=== PATIENT | female | born 1935 | race Caucasian/White ===

== ENCOUNTER → 2017-12-04 | Outpatient (CLI) | payer OTHER, SELFPAY ==
[~2017-12-04] MED LIST: ACET325; ACET500 PO; ASPI325; ASPI81CH PO; ASPI81EC; B-121000 MC2 PO; BENA20 PO; BENEZEPRIL; CALCIUM; CALCIUM W/D; CARBAMAZEPINE; CARV25 PO; CARV6.25 PO; CHOL10002 PO; CYAN1000 PO; DOCU100 PO; ENOX40I SC; ERGO400 PO; FURO40 PO; GINGKO BILOBA; GLIP10ER PO; GLYB2.5; GLYB5; HYDACE5; HYDACE5 PO; LIDO5TP TOP; LISI5 PO; LOSA25 PO; LOVA20 PO; LOVA40; LOVA40 PO; Lotensin PO; MAGCIT300 PO; METF500; METF500 PO; METO10 PO; Micro-K10 MEQ PO; NAPR500 PO; Norco 5-325 Ta1 EACH PO; OXYC5 PO; POTCHL20ER PO; PRED20 PO; PROACE100 PO; RXPROACE PO; SOLI5 PO; SPIR25 PO; Senokotxtra17.2 MG PO; TOLT4; TRADJENTA5 MG PO; TRAM50 PO; TYLENOL; VALA500 PO; VENL75ER PO; VERA240ER PO; VERA240ERB; VERAPAMIL; VESICARE; VITAMIN B; VITAMIN B 12; VOLTAREN GEL 1% TOP; Vesicare PO; XARELTO10 MG PO; [UNRECOGNIZED DRUG - OTHER]; [UNRECOGNIZED DRUG - REMARK]
[2017-12-06 13:13] LABS: HPV Genotype 16 Not Detected (NOTDET); HPV Genotype 18 Not Detected (NOTDET); HPV High Risk Other Not Detected (NOTDET)
== END | disposition home or self-care (01) ==
LOC: OLS 14:45
PROVIDERS: Nurse Practitioner Women's Health
DX: Z12.72 Encounter for screening for malignant neoplasm of vagina (principal); Z91.89 Other specified personal risk factors, not elsewhere classified
CPT/HCPCS: 87624; G0123

== ENCOUNTER 2018-05-28 08:50 | Day surgery (SDC) | payer OTHER ==
[~2018-05-28] VITALS: Ht 162.6 cm; Wt 69.4 kg
[~2018-05-28 08:50] MED LIST changes: -OXYC5 PO; -XARELTO10 MG PO
[2018-05-29 04:39] LABS: BASOPHILS ABSOLUTE AUTO 0.05 K/mm3 (0.00-0.23); BASOPHILS PERCENT AUTO 0 % (0-2); EOSINOPHILS ABSOLUTE AUTO 0.66 K/mm3 (0.00-0.68); EOSINOPHILS PERCENT AUTO 6 % (0-6); Hematocrit 31.5 % (33.0-51.0); Hemoglobin 10.2 g/dL (11.5-16.0); IMMATURE GRAN ABSOLUTE AUTO 0.05 K/mm3 (0.00-0.10); IMMATURE GRAN PERCENT AUTO 0 % (0-1); LYMPHOCYTES ABSOLUTE AUTO 1.03 K/mm3 (0.84-5.20); LYMPHOCYTES PERCENT AUTO 9 % (21-46); MONOCYTES ABSOLUTE AUTO 1.06 K/mm3 (0.16-1.47); MONOCYTES PERCENT AUTO 9 % (4-13); Mean Corpuscular HGB 30.4 pg (26.0-34.0); Mean Corpuscular HGB Conc 32.4 g/dL (31.5-36.5); Mean Corpuscular Volume 94 fL (80-100); Mean Platelet Volume 9.2 fL (9.1-12.4); NEUTROPHILS ABSOLUTE AUTO 8.69 K/mm3 (1.96-9.15); NEUTROPHILS PERCENT AUTO 75 % (41-73); Platelet Count 185 K/mm3 (150-400); RDW Coefficient Variation 11.9 % (11.7-14.2); RDW Standard Deviation 41.2 fL (35.1-46.3); Red Blood Cell Count 3.35 M/mm3 (3.80-5.20); White Blood Cell Count 11.54 K/mm3 (4.00-11.30)
[2018-05-29 05:00] LABS: Bun/Creatinine Ratio 33.9 (12.0-20.0); Calcium, Blood 9.1 mg/dL (8.5-10.1); Creatinine, Blood 1.24 mg/dL (0.40-1.00); Potassium, Blood 5.3 mmol/L (3.5-5.5)
[2018-05-29] MEDS ORDERED: XARELTO10 MG PO (09:05)
[2018-05-29] MEDS ORDERED: OXYC5 PO (09:07)
== END 2018-05-29 15:14 | disposition home or self-care (01) ==
LOC: ORSCMMR 08:50 → ORD 10:00 → ORSCMMR 10:00 → SURS 12:49 → ORSCMMR 05-29 15:14
PROVIDERS: Orthopaedic Surgery
PROC: 0SRC0J9 Replacement of Right Knee Joint with Synthetic Substitute, Cemented, Open Approach (ICD-10-PCS; principal; 2018-05-28 10:00)
DX: M17.11 Unilateral primary osteoarthritis, right knee (principal); M24.561 Contracture, right knee; I12.9 Hypertensive chronic kidney disease with stage 1 through stage 4 chronic kidney disease, or unspecified chronic kidney disease; E11.22 Type 2 diabetes mellitus with diabetic chronic kidney disease; N18.9 Chronic kidney disease, unspecified; I69.351 Hemiplegia and hemiparesis following cerebral infarction affecting right dominant side; Z86.718 Personal history of other venous thrombosis and embolism; Z79.82 Long term (current) use of aspirin; Z79.899 Other long term (current) drug therapy
CPT/HCPCS: 36415; 73560-RT; 80048; 82947; 85025; 86850; 86900; 86901; 97110; 97116; 97150; 97161; C1713; C1776; G8978; G8979; J0171; J0690; J0735; J1885; J2405; J2765; J2795; J7120

== ENCOUNTER → 2019-01-28 | Outpatient (CLI) | payer OTHER ==
[~2019-01-28] MED LIST changes: +OXYC5 PO; +XARELTO10 MG PO
[2019-01-30 15:06] LABS: HPV 16 Negative (Negative); HPV 18 Negative (Negative); HPV OTHER HR TYPES Negative (Negative)
== END | disposition home or self-care (01) ==
LOC: LAB 17:48 → LAB SHORT 17:48
PROVIDERS: Nurse Practitioner Women's Health
DX: Z12.72 Encounter for screening for malignant neoplasm of vagina (principal); R87.820 Cervical low risk human papillomavirus (HPV) DNA test positive; Z91.89 Other specified personal risk factors, not elsewhere classified
CPT/HCPCS: 87624; G0123

== ENCOUNTER 2020-12-20 09:14 | Emergency (ER) | payer OTHER ==
[~2020-12-20] VITALS: Ht 162.6 cm; Wt 67.6 kg
[2020-12-20] MEDS ORDERED: ASPI81CH PO (09:31)
[2020-12-20 09:53] LABS: BASOPHILS ABSOLUTE AUTO 0.05 K/mm3 (0.00-0.23); BASOPHILS PERCENT AUTO 1 % (0-2); EOSINOPHILS ABSOLUTE AUTO 0.43 K/mm3 (0.00-0.68); EOSINOPHILS PERCENT AUTO 6 % (0-6); Hematocrit 33.5 % (33.0-51.0); Hemoglobin 11.2 g/dL (11.5-16.0); IMMATURE GRAN ABSOLUTE AUTO 0.04 K/mm3 (0.00-0.10); IMMATURE GRAN PERCENT AUTO 1 % (0-1); LYMPHOCYTES ABSOLUTE AUTO 1.25 K/mm3 (0.84-5.20); LYMPHOCYTES PERCENT AUTO 18 % (21-46); MONOCYTES ABSOLUTE AUTO 0.67 K/mm3 (0.16-1.47); MONOCYTES PERCENT AUTO 10 % (4-13); Mean Corpuscular HGB 31.7 pg (26.0-34.0); Mean Corpuscular HGB Conc 33.4 g/dL (31.5-36.5); Mean Corpuscular Volume 95 fL (80-100); Mean Platelet Volume 9.3 fL (9.1-12.4); NEUTROPHILS ABSOLUTE AUTO 4.64 K/mm3 (1.96-9.15); NEUTROPHILS PERCENT AUTO 65 % (41-73); Platelet Count 218 K/mm3 (150-400); RDW Coefficient Variation 11.8 % (11.7-14.2); RDW Standard Deviation 40.3 fL (35.1-46.3); Red Blood Cell Count 3.53 M/mm3 (3.80-5.20); White Blood Cell Count 7.08 K/mm3 (4.00-11.30)
[2020-12-20 10:13] LABS: International Normalized Ratio 1.02; Prothrombin Time Results 10.9 Sec (9.7-11.5)
[2020-12-20 10:24] LABS: Alanine Aminotransfer (ALT/SGP 17 U/L (12-78); Albumin, Blood 3.5 g/dL (3.4-5.0); Albumin/Globulin Ratio 1.1 (0.8-1.8); Alk Phos 55 U/L (50-136); Anion Gap 9 mmol/L (6-16); Aspartate Aminotrans (AST/SGOT 9 U/L (12-37); Bilirubin, Total 0.4 mg/dL (0.1-1.0); Blood Urea Nitrogen 64 mg/dL (8-24); CO2, Blood 24 mmol/L (21-32); Calcium, Blood 9.3 mg/dL (8.5-10.1); Chloride, Blood 105 mmol/L (98-108); Globulin, Blood 3.3 g/dL (2.2-4.0); Glomerular Filtration Rate 32 (60-); Glucose, Blood 184 mg/dL (70-99); Potassium, Blood 4.6 mmol/L (3.5-5.5); Sodium, Blood 138 mmol/L (136-145); Total Protein, Blood 6.8 g/dL (6.4-8.2); Troponin I <0.015 ng/mL (0.000-0.040)
[2020-12-20] MEDS ORDERED: CLOP75 PO (12:08)
== END 2020-12-20 12:16 | disposition home or self-care (01) ==
LOC: ER 09:14
PROVIDERS: Emergency Medicine
DX: I63.9 Cerebral infarction, unspecified (principal); G83.11 Monoplegia of lower limb affecting right dominant side; I10 Essential (primary) hypertension; E11.9 Type 2 diabetes mellitus without complications; Z79.899 Other long term (current) drug therapy
CPT/HCPCS: 70450; 80053; 84484; 85025; 85610; 85730; 93005; 93010; 99285-25; A9270

== ENCOUNTER 2021-08-31 19:52 | Emergency (ER) | payer OTHER ==
[~2021-08-31] VITALS: Ht 162.6 cm; Wt 69.8 kg
[~2021-08-31 19:52] MED LIST changes: +CLOP75 PO
[2021-08-31] MEDS ORDERED: METFORMIN HCL500 M2 PO (20:54)
== END 2021-08-31 22:00 | disposition home or self-care (01) ==
LOC: ER 19:52
DX: S06.0X9A Concussion with loss of consciousness of unspecified duration, initial encounter (principal); S01.01XA Laceration without foreign body of scalp, initial encounter; I48.91 Unspecified atrial fibrillation; I10 Essential (primary) hypertension; E11.9 Type 2 diabetes mellitus without complications; E78.5 Hyperlipidemia, unspecified; Z88.6 Allergy status to analgesic agent; Z88.5 Allergy status to narcotic agent; Z79.899 Other long term (current) drug therapy; Z79.82 Long term (current) use of aspirin; Z79.84 Long term (current) use of oral hypoglycemic drugs; Z86.73 Personal history of transient ischemic attack (TIA), and cerebral infarction without residual deficits; Z79.02 Long term (current) use of antithrombotics/antiplatelets; W18.30XA Fall on same level, unspecified, initial encounter
CPT/HCPCS: 12001; 36415; 70450; 72125; 93005; 93010; 99284-25

== ENCOUNTER → 2021-12-07 | Outpatient (CLI) | payer OTHER ==
[~2021-12-07] MED LIST changes: +METFORMIN HCL500 M2 PO
[2021-12-07 13:17] LABS: Source, Urine Clean Catch
[2021-12-07 13:54] LABS: Appearance, Urine Turbid (Clear); Bilirubin, Urine Neg (Neg); Blood, Urine 3+ (Neg); Color, Urine Yellow (P-Yellow); Glucose Qualitative, Urine 3+ (Neg); Ketones, Urine Neg (Neg); Leukocyte Esterase, Urine 3+ (Neg); Nitrite, Urine Neg (Neg); Protein, Urine 2+ (Neg); Urobilinogen, Urine NORM (Normal)
[2021-12-07 14:14] LABS: White Blood Cells, Urine TNTC /hpf (0-5)
[2021-12-07 14:18] LABS: Bacteria Many /hpf; Squamous Epithelial Cells Many /hpf (Few)
== END ==
LOC: LAB SHORT 13:12 → LAB FUT 12-07 10:50
PROVIDERS: Internal Medicine
DX: N39.0 Urinary tract infection, site not specified (principal)
CPT/HCPCS: 81001

== ENCOUNTER → 2021-12-20 | Outpatient (CLI) | payer OTHER ==
[2021-12-20 10:23] LABS: Source, Urine Clean Catch
[2021-12-20 13:11] LABS: Appearance, Urine Hazy (Clear); Bilirubin, Urine Neg (Neg); Blood, Urine 1+ (Neg); Glucose Qualitative, Urine 3+ (Neg); Ketones, Urine Neg (Neg); Leukocyte Esterase, Urine 2+ (Neg); Nitrite, Urine Neg (Neg); Protein, Urine Neg (Neg); Specific Gravity, Urine 1.015 (1.003-1.022); Urobilinogen, Urine NORM (Normal)
[2021-12-20 13:28] LABS: Color, Urine Pale Yellow (P-Yellow)
[2021-12-20 13:29] LABS: Bacteria Few /hpf; Squamous Epithelial Cells Rare /hpf (Few)
[2021-12-20 13:30] LABS: Yeast/Fungi Urine Rare /hpf
== END ==
LOC: LAB SHORT 10:21
PROVIDERS: Internal Medicine
DX: N39.0 Urinary tract infection, site not specified (principal)
CPT/HCPCS: 81001

== ENCOUNTER 2021-12-26 16:45 | Emergency (ER) | payer OTHER ==
[~2021-12-26] VITALS: Ht 162.6 cm; Wt 68.0 kg
[2021-12-26 18:33] LABS: BASOPHILS ABSOLUTE AUTO 0.04 K/mm3 (0.00-0.23); BASOPHILS PERCENT AUTO 1 % (0-2); EOSINOPHILS ABSOLUTE AUTO 0.59 K/mm3 (0.00-0.68); EOSINOPHILS PERCENT AUTO 8 % (0-6); Hematocrit 30.8 % (33.0-51.0); Hemoglobin 10.1 g/dL (11.5-16.0); IMMATURE GRAN ABSOLUTE AUTO 0.02 K/mm3 (0.00-0.10); IMMATURE GRAN PERCENT AUTO 0 % (0-1); LYMPHOCYTES ABSOLUTE AUTO 1.48 K/mm3 (0.84-5.20); LYMPHOCYTES PERCENT AUTO 20 % (21-46); MONOCYTES ABSOLUTE AUTO 0.83 K/mm3 (0.16-1.47); MONOCYTES PERCENT AUTO 11 % (4-13); Mean Corpuscular HGB 31.1 pg (26.0-34.0); Mean Corpuscular HGB Conc 32.8 g/dL (31.5-36.5); Mean Corpuscular Volume 95 fL (80-100); Mean Platelet Volume 8.9 fL (9.1-12.4); NEUTROPHILS ABSOLUTE AUTO 4.47 K/mm3 (1.96-9.15); NEUTROPHILS PERCENT AUTO 60 % (41-73); Platelet Count 203 K/mm3 (150-400); RDW Coefficient Variation 12.1 % (11.7-14.2); RDW Standard Deviation 41.8 fL (35.1-46.3); Red Blood Cell Count 3.25 M/mm3 (3.80-5.20); White Blood Cell Count 7.43 K/mm3 (4.00-11.30)
[2021-12-26 18:38] LABS: Albumin, Blood 3.7 g/dL (3.4-5.0); Albumin/Globulin Ratio 1.1 (0.8-1.8); Bilirubin, Total 0.5 mg/dL (0.1-1.0); Bun/Creatinine Ratio 32.8 (12.0-20.0); Calcium, Blood 9.6 mg/dL (8.5-10.1); Creatinine, Blood 1.89 mg/dL (0.40-1.00); Globulin, Blood 3.4 g/dL (2.2-4.0); Potassium, Blood 5.4 mmol/L (3.5-5.5); Total Protein, Blood 7.1 g/dL (6.4-8.2)
== END 2021-12-26 20:40 | disposition home or self-care (01) ==
LOC: ER 16:45
PROVIDERS: Emergency Medicine
DX: G45.9 Transient cerebral ischemic attack, unspecified (principal); I48.91 Unspecified atrial fibrillation; I10 Essential (primary) hypertension; E11.9 Type 2 diabetes mellitus without complications; Z79.84 Long term (current) use of oral hypoglycemic drugs; Z79.899 Other long term (current) drug therapy
CPT/HCPCS: 36415; 70450; 80053; 85025; 93005; 93010; 99284-25

== ENCOUNTER 2021-12-27 15:23 | Inpatient (IN) | payer OTHER ==
[~2021-12-27] VITALS: Ht 162.6 cm; Wt 66.7 kg
[2021-12-27 16:12] LABS: BASOPHILS ABSOLUTE AUTO 0.03 K/mm3 (0.00-0.23); BASOPHILS PERCENT AUTO 0 % (0-2); EOSINOPHILS ABSOLUTE AUTO 0.49 K/mm3 (0.00-0.68); EOSINOPHILS PERCENT AUTO 6 % (0-6); Hemoglobin 10.4 g/dL (11.5-16.0); IMMATURE GRAN ABSOLUTE AUTO 0.01 K/mm3 (0.00-0.10); IMMATURE GRAN PERCENT AUTO 0 % (0-1); LYMPHOCYTES ABSOLUTE AUTO 1.12 K/mm3 (0.84-5.20); LYMPHOCYTES PERCENT AUTO 13 % (21-46); MONOCYTES ABSOLUTE AUTO 0.77 K/mm3 (0.16-1.47); MONOCYTES PERCENT AUTO 9 % (4-13); Mean Corpuscular HGB Conc 32.5 g/dL (31.5-36.5); Mean Corpuscular Volume 96 fL (80-100); Mean Platelet Volume 9.1 fL (9.1-12.4); NEUTROPHILS ABSOLUTE AUTO 6.34 K/mm3 (1.96-9.15); NEUTROPHILS PERCENT AUTO 72 % (41-73); Platelet Count 204 K/mm3 (150-400); RDW Coefficient Variation 12.1 % (11.7-14.2); RDW Standard Deviation 41.5 fL (35.1-46.3); Red Blood Cell Count 3.35 M/mm3 (3.80-5.20); White Blood Cell Count 8.76 K/mm3 (4.00-11.30)
[2021-12-27 16:37] LABS: Albumin, Blood 3.6 g/dL (3.4-5.0); Bilirubin, Total 0.5 mg/dL (0.1-1.0); Bun/Creatinine Ratio 29.3 (12.0-20.0); Calcium, Blood 9.5 mg/dL (8.5-10.1); Creatinine, Blood 2.05 mg/dL (0.40-1.00); Globulin, Blood 3.6 g/dL (2.2-4.0); Potassium, Blood 4.7 mmol/L (3.5-5.5); Total Protein, Blood 7.2 g/dL (6.4-8.2)
--- NOTE | 2021-12-27 22:46 | NUR ---
PATIENT KEEPER DOWN. WRITTEN ORDER SETS BY DR. Cris MUNIZ UPDATED IN [facility]. MEDICATION LIST SCANNED TO PHARMACY.
--- NOTE | 2021-12-28 01:19 | NUR ---
ADMISSION: PT IS A/0X4. SHE ARRIVED TO THE FLOOR VIA GURNEY AND NEEDED A SLIDE SHEET. SHE IS HAVING RT-SIDED WEAKNESS TO ARM/LEG. SHE DOES NOT HAVE ANY FACIAL DROOP OR SLURRED SPEECH. PER MANAGER SPRING: SR/90s W/ BBB. HER CT WAS NEGATIVE FOR ANY ACUTE INTRACRANIAL PROCESS. 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 A CAROTID ULTRASOUND WAS ORDERED AND WILL BE HAVING A MRI DONE 12/29. SHE IS RESTING COMFORTABLY, CALL LIGHT IS WITHIN REACH, AND WE'LL CONTINUE TO MONITOR.
[2021-12-28 04:50] LABS: BASOPHILS ABSOLUTE AUTO 0.04 K/mm3 (0.00-0.23); BASOPHILS PERCENT AUTO 1 % (0-2); EOSINOPHILS ABSOLUTE AUTO 0.51 K/mm3 (0.00-0.68); EOSINOPHILS PERCENT AUTO 7 % (0-6); Hematocrit 30.6 % (33.0-51.0); Hemoglobin 10.2 g/dL (11.5-16.0); IMMATURE GRAN ABSOLUTE AUTO 0.03 K/mm3 (0.00-0.10); IMMATURE GRAN PERCENT AUTO 0 % (0-1); LYMPHOCYTES ABSOLUTE AUTO 1.53 K/mm3 (0.84-5.20); LYMPHOCYTES PERCENT AUTO 21 % (21-46); MONOCYTES ABSOLUTE AUTO 0.83 K/mm3 (0.16-1.47); MONOCYTES PERCENT AUTO 12 % (4-13); Mean Corpuscular HGB 31.5 pg (26.0-34.0); Mean Corpuscular HGB Conc 33.3 g/dL (31.5-36.5); Mean Corpuscular Volume 94 fL (80-100); Mean Platelet Volume 8.9 fL (9.1-12.4); NEUTROPHILS PERCENT AUTO 59 % (41-73); Platelet Count 193 K/mm3 (150-400); Red Blood Cell Count 3.24 M/mm3 (3.80-5.20); White Blood Cell Count 7.14 K/mm3 (4.00-11.30)
[2021-12-28 05:16] LABS: Albumin, Blood 3.4 g/dL (3.4-5.0); Bilirubin, Total 0.4 mg/dL (0.1-1.0); Bun/Creatinine Ratio 31.6 (12.0-20.0); Calcium, Blood 9.6 mg/dL (8.5-10.1); Creatinine, Blood 1.9 mg/dL (0.40-1.00); Globulin, Blood 3.4 g/dL (2.2-4.0); Potassium, Blood 4.3 mmol/L (3.5-5.5); Total Protein, Blood 6.8 g/dL (6.4-8.2)
--- NOTE | 2021-12-28 05:35 | NUR ---
SHIFT SUMMARY: PT IS A/OX4. SHE ANSWERED ALL QUESTIONS APPROPRIATELY AND HAS BEEN COOPERATIVE WITH ALL CARE. PER ENVIRONMENTAL HEALTH INSPECTOR: SR/90 W/ BBB. THE CAROTID U.S. WAS COMPLETED BEDSIDE. PT HAS BEEN RESTING WELL WITH NO C/O. WE WILL CONTINUE TO MONITO THE REMAINDER OF THE SHIFT.
--- NOTE | 2021-12-28 10:20 | NUR ---
CALLED DR ANGELA- RECIEVED A CALL FROM PHARMACY TO CLARIFY AN ADMIT ORDER FOR LASIX. PT STATES SHE TAKES LASIX Sunday AND SUNDAY. OK TO RESUME PT HOME DOSE OF LASIX HERE SHE TAKES IT AT HOME. ORDER PLACED IN ORDER MANAGEMENT. CALLED [facility] AND UPDATED.
--- NOTE | 2021-12-28 13:50 | NUR ---
CALL TO DR ANGELA TOLD MD PT'S BLOOD GLUCOSE 210 WHEN SHE RETURNED FROM MRI. SHE DID NOT TAKE HER ORAL DIABETES MEDS LAST EVENING OR THIS MORNING. DR ANGELA ORDERED HER GLIPIZIDE, TRADJENTA AND METFORMIN TO START THIS EVENING AND TOMORROW MORNING. HE SAID TO START MEDIUM SLIDING SCALE INSULIN TO COVER HER BLOOD GLUCOSE NOW. DR ANGELA ALSO SAID TO REMOVE SUTURES FROM LEFT ARM.
--- NOTE | 2021-12-28 16:47 | NUR ---
DR ANGELA TO ROOM- DR ANGELA WAS JUST DISCUSSING PT TEST RESULTS WITH MS VÁSQUEZ. HE LEFT THE ROOM TO CALL HER DAUGHTER, WHEN I NOTICED A NEW CHANGE NEUROLOGICALLY FOR MS VÁSQUEZ. ESTHELA WAS PREVIOUSLY CLEAR, NOW HESITANT, NOT QUITE CLEAR. SHE TOLD ME THE YEAR WAS 2[birth year], HAD TO REALLY THINK ABOUT BEFORE SAYING HER BIRTHDATE, KNEW THE MONTH, BUT ESTHELA WAS MORE DELIBERATE. NO NEW FACIAL DROOP NOTICABLE, ARM AND LEG STRENGTH SEEM TO BE THE SAME EARLIER. DR ANGELA RETURNED TO THE ROOM TO ASSESS MS VÁSQUEZ. HE DISCONTINUED HER COZAAR, ALDACTONE AND COREG, WHICH I ENTERED A VERBAL ORDER.
--- NOTE | 2021-12-28 18:00 | NUR ---
SHIFT SUMMARY MS VÁSQUEZ HAS NOTABLE RIGHT ARM AND RIGHT LEG WEAKNESS, NO FACIAL DROOP. THERE WAS A SHORT TIME WHEN HER SPEACH WAS DELIBERATE AND PT WAS FINDING IT HARD TO FIND THE WORDS, DR ANGELA ASSESSED HER AT THE TIME OF EVENT. HER DAUGHTER IS AT HER BEDSIDE NOW AND HAS NOT NOTICED ANY SPEACH OR WORD FINDING PROBLEMS SINCE SHE'S BEEN HERE, AND IT SEEMS TO HAVE RESOLVED. PT HAD AN MRI TODAY AND CAROTID US. DR ANGELA DISSCUSSED RESULTS WITH PT AND HER DAUGHTER. COPY OF POA AND ADVANCED DIRECTIVES PLACED IN THE CHART. SUTURES REMOVED FROM LEFT ARM, LEFT ARM WOUND IS WELL APPROXIATED. DRESSING ON RIGHT LOWER LEG WHERE PT DESCRIBES BUMPING INTO EQUIPMENT AT HOME. PT AND OT INVOLVED IN CARE OF PT TODAY.
--- NOTE | 2021-12-29 05:47 | NUR ---
SHIFT SUMMARY: THE PT HAS BEEN A/OX4 THIS NOC SHIFT. SHE STILL HAS THE PUREWICK IN PLACE D/T THE RIGHT-SIDED WEAKNESS. SHE DOES STATE THAT SENSATION IS IMPROVING. HER PCT SEEMED TO BE STRONGER WELL HER DORSI/PLANTAR FLEXION. SHE HAD NOT EXHIBITED ANY FACIAL DROOP OR HAD ANY SLURRED SPEECH. PER TELE MONITOR: SR/78. SHE HAS BEEN VERY RESTFUL THIS NOC SHIFT. HER CALL LIGHT IS WITHIN REACH AND WE'LL CONTINUE TO MONITOR.
[2021-12-29 17:23] LABS: Influenza A, PCR NEGATIVE (NEGATIVE); Influenza B, PCR NEGATIVE (NEGATIVE); Resp Syncytial Virus, PCR NEGATIVE (NEGATIVE); SARS-Cov-2 (COVID-19) PCR, MMC NEGATIVE (NEGATIVE)
--- NOTE | 2021-12-29 18:50 | NUR ---
DISCHARGE SUMMARY: PT DISCHARGED TO [facility]. PT TRANSPORTED BY [facility] VIA . [employer] INCLUIDING HEARING AIDS, TABLET SENT WITH PT.
== END 2021-12-29 18:43 | DRG 65 ==
LOC: ER 15:23 → MEDS 15:24
PROVIDERS: Emergency Medicine; Internal Medicine; ADMIT Internal Medicine
DX: I63.9 Cerebral infarction, unspecified (principal); N18.4 Chronic kidney disease, stage 4 (severe); I50.32 Chronic diastolic (congestive) heart failure; I13.0 Hypertensive heart and chronic kidney disease with heart failure and stage 1 through stage 4 chronic kidney disease, or unspecified chronic kidney disease; Z66 Do not resuscitate; Z20.822 Contact with and (suspected) exposure to COVID-19; G81.91 Hemiplegia, unspecified affecting right dominant side; E11.22 Type 2 diabetes mellitus with diabetic chronic kidney disease; Z79.84 Long term (current) use of oral hypoglycemic drugs; Z79.82 Long term (current) use of aspirin; Z79.899 Other long term (current) drug therapy; Z79.02 Long term (current) use of antithrombotics/antiplatelets; I48.91 Unspecified atrial fibrillation; I25.5 Ischemic cardiomyopathy; Z90.710 Acquired absence of both cervix and uterus; Z96.651 Presence of right artificial knee joint
CPT/HCPCS: 0241U; 36415; 70450; 70551; 80053; 82947; 83036; 83718; 85025; 85730; 93005; 93010; 93306; 93880; 97110; 97112; 97116; 97162; 97166; 97535; 99285-25; A9270; J1644; J1815

== ENCOUNTER 2022-05-28 12:37 | Emergency (ER) | payer OTHER ==
[~2022-05-28] VITALS: Ht 162.6 cm; Wt 68.0 kg
[2022-05-28 13:13] LABS: BASOPHILS ABSOLUTE AUTO 0.05 K/mm3 (0.00-0.23); BASOPHILS PERCENT AUTO 1 % (0-2); EOSINOPHILS ABSOLUTE AUTO 0.83 K/mm3 (0.00-0.68); EOSINOPHILS PERCENT AUTO 11 % (0-6); Hematocrit 34.6 % (33.0-51.0); Hemoglobin 11.2 g/dL (11.5-16.0); IMMATURE GRAN ABSOLUTE AUTO 0.02 K/mm3 (0.00-0.10); IMMATURE GRAN PERCENT AUTO 0 % (0-1); LYMPHOCYTES ABSOLUTE AUTO 1.25 K/mm3 (0.84-5.20); LYMPHOCYTES PERCENT AUTO 16 % (21-46); MONOCYTES ABSOLUTE AUTO 0.85 K/mm3 (0.16-1.47); MONOCYTES PERCENT AUTO 11 % (4-13); Mean Corpuscular HGB 29.9 pg (26.0-34.0); Mean Corpuscular HGB Conc 32.4 g/dL (31.5-36.5); Mean Corpuscular Volume 93 fL (80-100); Mean Platelet Volume 9.1 fL (9.1-12.4); NEUTROPHILS ABSOLUTE AUTO 4.83 K/mm3 (1.96-9.15); NEUTROPHILS PERCENT AUTO 62 % (41-73); Platelet Count 255 K/mm3 (150-400); RDW Coefficient Variation 13.2 % (11.7-14.2); RDW Standard Deviation 45.1 fL (35.1-46.3); Red Blood Cell Count 3.74 M/mm3 (3.80-5.20); White Blood Cell Count 7.83 K/mm3 (4.00-11.30)
[2022-05-28 13:27] LABS: Albumin, Blood 3.2 g/dL (3.4-5.0); Albumin/Globulin Ratio 0.9 (0.8-1.8); Bilirubin, Total 0.5 mg/dL (0.1-1.0); Bun/Creatinine Ratio 28.9 (12.0-20.0); Calcium, Blood 8.9 mg/dL (8.5-10.1); Creatinine, Blood 1.42 mg/dL (0.40-1.00); Globulin, Blood 3.7 g/dL (2.2-4.0); Total Protein, Blood 6.9 g/dL (6.4-8.2)
== END 2022-05-28 14:29 | disposition home or self-care (01) ==
LOC: ER 12:37
PROVIDERS: Student in an Organized Health Care Education/Training Program
DX: S09.90XA Unspecified injury of head, initial encounter (principal); E11.22 Type 2 diabetes mellitus with diabetic chronic kidney disease; N18.4 Chronic kidney disease, stage 4 (severe); I50.9 Heart failure, unspecified; W18.09XA Striking against other object with subsequent fall, initial encounter; Z79.899 Other long term (current) drug therapy
CPT/HCPCS: 36415; 70450; 80053; 85025; 93005; 93010

== ENCOUNTER 2022-08-26 15:36 | Emergency (ER) | payer OTHER ==
[~2022-08-26] VITALS: Ht 167.6 cm; Wt 68.0 kg
[2022-08-26 16:13] LABS: BASOPHILS ABSOLUTE AUTO 0.05 K/mm3 (0.00-0.23); BASOPHILS PERCENT AUTO 1 % (0-2); EOSINOPHILS ABSOLUTE AUTO 0.65 K/mm3 (0.00-0.68); EOSINOPHILS PERCENT AUTO 7 % (0-6); Hematocrit 33.1 % (33.0-51.0); Hemoglobin 10.5 g/dL (11.5-16.0); IMMATURE GRAN ABSOLUTE AUTO 0.05 K/mm3 (0.00-0.10); IMMATURE GRAN PERCENT AUTO 1 % (0-1); LYMPHOCYTES ABSOLUTE AUTO 1.37 K/mm3 (0.84-5.20); LYMPHOCYTES PERCENT AUTO 14 % (21-46); MONOCYTES PERCENT AUTO 11 % (4-13); Mean Corpuscular HGB 29.7 pg (26.0-34.0); Mean Corpuscular HGB Conc 31.7 g/dL (31.5-36.5); Mean Corpuscular Volume 94 fL (80-100); Mean Platelet Volume 9.2 fL (9.1-12.4); NEUTROPHILS PERCENT AUTO 67 % (41-73); Platelet Count 220 K/mm3 (150-400); RDW Coefficient Variation 14.3 % (11.7-14.2); RDW Standard Deviation 48.3 fL (35.1-46.3); Red Blood Cell Count 3.53 M/mm3 (3.80-5.20); White Blood Cell Count 9.72 K/mm3 (4.00-11.30)
[2022-08-26 16:49] LABS: Albumin, Blood 3.3 g/dL (3.4-5.0); Bilirubin, Total 0.5 mg/dL (0.1-1.0); Bun/Creatinine Ratio 35.6 (12.0-20.0); Creatinine, Blood 1.46 mg/dL (0.40-1.00); Globulin, Blood 3.3 g/dL (2.2-4.0); Total Protein, Blood 6.6 g/dL (6.4-8.2)
[2022-08-26 20:14] LABS: International Normalized Ratio 1.12; Prothrombin Time Results 11.7 Sec (9.7-11.5)
== END 2022-08-26 20:40 | disposition short-term general hospital (02) ==
LOC: ER 15:36
PROVIDERS: Emergency Medicine; Student in an Organized Health Care Education/Training Program
DX: S06.5XAA Traumatic subdural hemorrhage with loss of consciousness status unknown, initial encounter (principal); W19.XXXA Unspecified fall, initial encounter; I50.30 Unspecified diastolic (congestive) heart failure; N18.4 Chronic kidney disease, stage 4 (severe); E11.22 Type 2 diabetes mellitus with diabetic chronic kidney disease
CPT/HCPCS: 36415; 70450; 80053; 85025; 85379; 85610; 85730; 93005; 93010; A9270; J7050

== ENCOUNTER → 2022-10-12 | Outpatient (CLI) | payer OTHER | END | disposition home or self-care (01) | LOC: LAB SHORT 11:40 | DX: S81.801A Unspecified open wound, right lower leg, initial encounter (principal); S61.203A Unspecified open wound of left middle finger without damage to nail, initial encounter | CPT/HCPCS: 87070; 87205 ==

== ENCOUNTER → 2023-03-20 | Outpatient (CLI) | payer OTHER ==
[~2023-03-20] MED LIST changes: +BASAGLAR K100 UNIT/3 SC; +BUME2 PO; +CARVEDILOL12.5 MG PO; +CATAPRES0.1 MG PO; +CEFD300 PO; +HUMALOG100 UNIT/1 SC; +LIPITOR80 MG PO; +MONDOXYNE NL100 MG PO; +PLAVIX75 MG PO
[2023-03-20 14:32] LABS: Ferritin, Serum 41 ng/mL (8-252); Iron Serum 80 ug/dL (50-170); Total Iron Binding Capacity 318 ug/dL (250-450)
[2023-03-20 14:33] LABS: Albumin, Blood 3.3 g/dL (3.4-5.0); Anion Gap 7 mmol/L (6-16); Blood Urea Nitrogen 60 mg/dL (8-24); Bun/Creatinine Ratio 34.5 (12.0-20.0); CO2, Blood 29 mmol/L (21-32); Calcium, Blood 9.1 mg/dL (8.5-10.1); Chloride, Blood 104 mmol/L (98-108); Creatinine, Blood 1.74 mg/dL (0.40-1.00); Glomerular Filtration Rate 28 (60-); Glucose, Blood 196 mg/dL (70-99); Percent Saturation 25.2 % (15.0-50.0); Phosphorus, Blood 3.8 mg/dL (2.5-4.9); Potassium, Blood 3.5 mmol/L (3.5-5.5); Sodium, Blood 140 mmol/L (136-145)
== END | disposition home or self-care (01) ==
LOC: LAB SHORT 09:00 → LAB 09:00
PROVIDERS: Internal Medicine Nephrology
DX: N18.30 Chronic kidney disease, stage 3 unspecified (principal); D63.1 Anemia in chronic kidney disease; D51.8 Other vitamin B12 deficiency anemias; R76.9 Abnormal immunological finding in serum, unspecified; R94.6 Abnormal results of thyroid function studies
CPT/HCPCS: 80069; 82306; 82607; 82728; 82746; 83540; 83550; 83970; 85018

== ENCOUNTER → 2023-03-21 | Outpatient (CLI) | payer OTHER ==
[2023-03-21 16:45] LABS: Protein, Urine Quantitative 14.6 mg/dL (0.0-11.9)
[2023-03-21 16:50] LABS: Creatinine Urine 32.1 mg/dL (27.00-270.00); Microalbumin, Urine Quant. 24.6 mg/L (0.000-20.000)
== END | disposition home or self-care (01) ==
LOC: LAB 13:35 → LAB SHORT 13:35
PROVIDERS: Internal Medicine Nephrology
DX: N18.30 Chronic kidney disease, stage 3 unspecified (principal); D63.1 Anemia in chronic kidney disease; D51.8 Other vitamin B12 deficiency anemias; R76.9 Abnormal immunological finding in serum, unspecified; R94.5 Abnormal results of liver function studies
CPT/HCPCS: 81050; 82043; 82570; 84156

== ENCOUNTER → 2023-04-18 | Outpatient (CLI) | payer OTHER ==
[2023-04-18 09:44] LABS: Appearance, Urine Hazy (Clear); Bilirubin, Urine Neg (Neg); Blood, Urine 2+ (Neg); Color, Urine Yellow (P-Yellow); Glucose Qualitative, Urine 3+ (Neg); Ketones, Urine Neg (Neg); Leukocyte Esterase, Urine 2+ (Neg); Nitrite, Urine Pos (Neg); Protein, Urine 2+ (Neg); Specific Gravity, Urine 1.015 (1.003-1.022); Urobilinogen, Urine NORM (Normal)
[2023-04-18 10:59] LABS: Red Blood Cells, Urine 0-2 /hpf (0-2); White Blood Cells, Urine 25-50 /hpf (0-5)
[2023-04-18 11:00] LABS: Bacteria Many /hpf; Squamous Epithelial Cells Few /hpf (Few)
== END | disposition home or self-care (01) ==
LOC: LAB SHORT 09:18 → LAB 09:18
PROVIDERS: Internal Medicine
DX: N39.0 Urinary tract infection, site not specified (principal)
CPT/HCPCS: 81001; 87077; 87086; 87186

== ENCOUNTER → 2023-08-27 | Outpatient (CLI) | payer OTHER ==
[2023-08-27 16:51] LABS: Source, Urine Clean Catch
[2023-08-27 19:39] LABS: Appearance, Urine Cloudy (Clear); Bilirubin, Urine Neg (Neg); Blood, Urine 3+ (Neg); Glucose Qualitative, Urine 1+ (Neg); Ketones, Urine Neg (Neg); Leukocyte Esterase, Urine 3+ (Neg); Nitrite, Urine Neg (Neg); Protein, Urine 2+ (Neg); Specific Gravity, Urine 1.015 (1.003-1.022); Urobilinogen, Urine NORM (Normal)
[2023-08-27 19:54] LABS: Color, Urine Pale Yellow (P-Yellow)
[2023-08-27 19:56] LABS: Bacteria Many /hpf; Red Blood Cells, Urine 0-2 /hpf (0-2); Squamous Epithelial Cells Few /hpf (Few); White Blood Cells, Urine TNTC /hpf (0-5)
== END ==
LOC: LAB SHORT 15:00 → LAB 15:00
PROVIDERS: Internal Medicine
DX: N39.0 Urinary tract infection, site not specified (principal)
CPT/HCPCS: 81001; 87077; 87086; 87186

== ENCOUNTER → 2023-09-07 | Outpatient (CLI) | payer OTHER ==
[2023-09-07 10:03] LABS: Source, Urine Clean Catch
[2023-09-07 10:09] LABS: Appearance, Urine Hazy (Clear); Bilirubin, Urine Neg (Neg); Blood, Urine 3+ (Neg); Glucose Qualitative, Urine Neg (Neg); Ketones, Urine Neg (Neg); Leukocyte Esterase, Urine 3+ (Neg); Nitrite, Urine Neg (Neg); Protein, Urine 1+ (Neg); Urobilinogen, Urine NORM (Normal)
[2023-09-07 10:14] LABS: Color, Urine Pale Yellow (P-Yellow)
[2023-09-07 10:19] LABS: Bacteria Many /hpf; Squamous Epithelial Cells Few /hpf (Few); White Blood Cells, Urine TNTC /hpf (0-5)
[2023-09-07 10:20] LABS: Hyaline Casts 0-2 /lpf (0-2)
== END ==
LOC: LAB 10:00 → LAB SHORT 10:00
PROVIDERS: Internal Medicine
DX: N39.0 Urinary tract infection, site not specified (principal)
CPT/HCPCS: 81001; 87086

== ENCOUNTER → 2024-01-14 | Outpatient (CLI) | payer OTHER ==
[~2024-01-14] MED LIST changes: +ALMACONE SUSPE355 ML PO; +Acetaminophen650 M1 PO; -B-121000 MC2 PO; +B-121000 MC7 PO; +BISA10S PR; +Bumetanide2 MG PO; +CALC.25 PO; +CEPH500 PO; +DOXY100 PO; +DULCOLAX400 MG/5 M PO; +NOVOLIN N100 UNIT/2 SC; +NOVOLOG FL100 UNIT/3 SC; +NYAMYC15 G1 TOP; +POTA10T PO; +VITAMIN D31000 UNI1 PO
[2024-01-14 13:19] LABS: Source, Urine Clean Catch
[2024-01-14 13:35] LABS: Bacteria Few /hpf; Red Blood Cells, Urine TNTC /hpf (0-2); Squamous Epithelial Cells Few /hpf (Few)
== END | disposition home or self-care (01) ==
LOC: LAB SHORT 13:18 → LAB 13:18
PROVIDERS: Physician Assistant Medical
DX: R31.9 Hematuria, unspecified (principal)
CPT/HCPCS: 80053; 81015; 85025

== ENCOUNTER 2024-01-22 11:21 | Inpatient (IN) | payer OTHER ==
[~2024-01-22] VITALS: Ht 162.6 cm; Wt 68.0 kg
[~2024-01-22 11:21] MED LIST changes: -ALMACONE SUSPE355 ML PO; -Acetaminophen650 M1 PO; -BISA10S PR; -Bumetanide2 MG PO; -CALC.25 PO; -DULCOLAX400 MG/5 M PO; -NOVOLIN N100 UNIT/2 SC; -NOVOLOG FL100 UNIT/3 SC; -NYAMYC15 G1 TOP; -POTA10T PO; -VITAMIN D31000 UNI1 PO
[2024-01-22] MEDS ORDERED: POTA10T PO (11:35)
[2024-01-22] MEDS ORDERED: CALC.25 PO (11:36)
[2024-01-22] MEDS ORDERED: VITAMIN D31000 UNI1 PO (11:37)
[2024-01-22 11:59] LABS: BASOPHILS ABSOLUTE AUTO 0.04 K/mm3 (0.00-0.23); BASOPHILS PERCENT AUTO 0 % (0-2); EOSINOPHILS ABSOLUTE AUTO 0.66 K/mm3 (0.00-0.68); EOSINOPHILS PERCENT AUTO 7 % (0-6); Hematocrit 28.5 % (33.0-51.0); Hemoglobin 9.2 g/dL (11.5-16.0); IMMATURE GRAN ABSOLUTE AUTO 0.07 K/mm3 (0.00-0.10); IMMATURE GRAN PERCENT AUTO 1 % (0-1); LYMPHOCYTES ABSOLUTE AUTO 1.41 K/mm3 (0.84-5.20); LYMPHOCYTES PERCENT AUTO 14 % (21-46); MONOCYTES PERCENT AUTO 8 % (4-13); Mean Corpuscular HGB 29.2 pg (26.0-34.0); Mean Corpuscular HGB Conc 32.3 g/dL (31.5-36.5); Mean Corpuscular Volume 91 fL (80-100); Mean Platelet Volume 9.8 fL (9.1-12.4); NEUTROPHILS ABSOLUTE AUTO 6.98 K/mm3 (1.96-9.15); NEUTROPHILS PERCENT AUTO 70 % (41-73); Platelet Count 173 K/mm3 (150-400); RDW Coefficient Variation 13.7 % (11.7-14.2); RDW Standard Deviation 44.8 fL (35.1-46.3); Red Blood Cell Count 3.15 M/mm3 (3.80-5.20); White Blood Cell Count 9.96 K/mm3 (4.00-11.30)
[2024-01-22 12:16] LABS: Albumin, Blood 2.9 g/dL (3.4-5.0); Albumin/Globulin Ratio 0.9 (0.8-1.8); Bilirubin, Total 0.5 mg/dL (0.1-1.0); Bun/Creatinine Ratio 36.2 (12.0-20.0); Calcium, Blood 8.6 mg/dL (8.5-10.1); Creatinine, Blood 1.77 mg/dL (0.40-1.00); Globulin, Blood 3.3 g/dL (2.2-4.0); Potassium, Blood 3.9 mmol/L (3.5-5.5); Total Protein, Blood 6.2 g/dL (6.4-8.2)
[2024-01-22] MEDS ORDERED: Pantoprazole Sodium 40 MG Injection IV ONE (12:40)
[2024-01-22] MEDS ORDERED: Acetaminophen 325 MG TABLET PO PRN (14:30)
[2024-01-22] MEDS ORDERED: Bumetanide 1 MG Tab PO SCH (14:35)
[2024-01-22 15:31] LABS: Hematocrit 27.5 % (33.0-51.0); Hemoglobin 9.1 g/dL (11.5-16.0)
[2024-01-22 15:35] LABS: Source, Urine Clean Catch
[2024-01-22 15:40] LABS: Appearance, Urine Cloudy (Clear); Bilirubin, Urine Neg (Neg); Blood, Urine 5+ (Neg); Color, Urine Red (P-Yellow); Glucose Qualitative, Urine 3+ (Neg); Ketones, Urine 1+ (Neg); Leukocyte Esterase, Urine 1+ (Neg); Nitrite, Urine Neg (Neg); Protein, Urine 4+ (Neg); Urobilinogen, Urine NORM (Normal); pH, Urine 6.5 (5.0-8.0)
[2024-01-22 15:55] LABS: Bacteria Mod /hpf; Red Blood Cells, Urine TNTC /hpf (0-2); Squamous Epithelial Cells Rare /hpf (Few)
[2024-01-22 16:05] VITALS: BP 142/54
[2024-01-22] MEDS ORDERED: Bumetanide2 MG PO (16:16)
[2024-01-22] MEDS ORDERED: BISA10S PR (16:21)
[2024-01-22] MEDS ORDERED: NYAMYC15 G1 TOP (16:22)
[2024-01-22] MEDS ORDERED: DULCOLAX400 MG/5 M PO (16:29)
[2024-01-22] MEDS ORDERED: Acetaminophen650 M1 PO (16:29)
[2024-01-22] MEDS ORDERED: Pantoprazole Sodium 40 MG Injection IV SCH (16:30)
[2024-01-22] MEDS ORDERED: Insulin Regular 100 UNIT/ML 10ML Vial SC SCH (16:30)
[2024-01-22] MEDS ORDERED: ALMACONE SUSPE355 ML PO (16:31)
[2024-01-22] MEDS ORDERED: NOVOLIN N100 UNIT/2 SC (16:32)
[2024-01-22] MEDS ORDERED: NOVOLOG FL100 UNIT/3 SC (16:33)
--- NOTE | 2024-01-22 16:54 | NUR ---
PT ARRIVED TO MEDICAL FLOOR @1555 VIA GURNEY. PT STATED SHE DID NOT FEEL COMFORTABLE TRANSFERING TO BED. STAFF ASSIST WITH SLIDE SHEET TO BED. VITALS OBTAINED. IV FLUSHED WELL, SALINE LOCKED. PT STATED SHE IS UNABLE TO FEEL WHEN NEEDING TO HAVE BM OR VOID. PUREWICK SET UP SUCTIONING RED URINE. NOTED REDNESS UNDER ABD FOLD AND MERCEDES AREA. MICONAZOLE ORDERED. PT STATED SHE IS "GETTING OVER" CELLULITIS ON LLE. REDNESS TO HEALS AND COCCYX NOTED. ROTATE Q2, HEEL PROTECTORS IN PLACE. DR. ZUNIGA VOICEMAIL CONSULT PLACED BY ER. PT ON CLEAR LIQUID DIET AT THIS TIME. CALL LIGHT IN PLACE. ICE WATER PROVIDED. NO OTHER NEEDS AT THIS TIME.
[2024-01-22 20:08] LABS: Hemoglobin 8.7 g/dL (11.5-16.0)
[2024-01-22] MEDS ORDERED: Miconazole Nitrate 2% 85 GM PWD TOP SCH (21:00)
[2024-01-22] MEDS ORDERED: Lactobacil 2-S.Thermo-Bifido 1 1 Cap PO SCH (21:00)
[2024-01-22] MEDS ORDERED: Carvedilol 6.25 MG Tab PO SCH (21:00)
[2024-01-22 22:56] LABS: Hematocrit 27.1 % (33.0-51.0); Hemoglobin 8.8 g/dL (11.5-16.0)
[2024-01-23 03:17] LABS: BASOPHILS ABSOLUTE AUTO 0.04 K/mm3 (0.00-0.23); BASOPHILS PERCENT AUTO 0 % (0-2); EOSINOPHILS ABSOLUTE AUTO 0.71 K/mm3 (0.00-0.68); EOSINOPHILS PERCENT AUTO 8 % (0-6); Hematocrit 25.7 % (33.0-51.0); Hemoglobin 8.4 g/dL (11.5-16.0); IMMATURE GRAN ABSOLUTE AUTO 0.06 K/mm3 (0.00-0.10); IMMATURE GRAN PERCENT AUTO 1 % (0-1); LYMPHOCYTES ABSOLUTE AUTO 1.34 K/mm3 (0.84-5.20); LYMPHOCYTES PERCENT AUTO 15 % (21-46); MONOCYTES ABSOLUTE AUTO 0.86 K/mm3 (0.16-1.47); MONOCYTES PERCENT AUTO 10 % (4-13); Mean Corpuscular HGB 29.1 pg (26.0-34.0); Mean Corpuscular HGB Conc 32.7 g/dL (31.5-36.5); Mean Corpuscular Volume 89 fL (80-100); Mean Platelet Volume 9.5 fL (9.1-12.4); NEUTROPHILS ABSOLUTE AUTO 5.92 K/mm3 (1.96-9.15); NEUTROPHILS PERCENT AUTO 66 % (41-73); Platelet Count 170 K/mm3 (150-400); RDW Coefficient Variation 13.8 % (11.7-14.2); RDW Standard Deviation 44.8 fL (35.1-46.3); Red Blood Cell Count 2.89 M/mm3 (3.80-5.20); White Blood Cell Count 8.93 K/mm3 (4.00-11.30)
[2024-01-23 03:38] LABS: Calcium, Blood 8.3 mg/dL (8.5-10.1); Creatinine, Blood 1.7 mg/dL (0.40-1.00); Potassium, Blood 3.4 mmol/L (3.5-5.5)
[2024-01-23 04:41] VITALS: BP 115/59
--- NOTE | 2024-01-23 06:48 | NUR ---
SHIFT SUMMARY PT.IS A&O X4, [place], AND COOP WITH CARE. C/O ALL OVER BODY PAIN, TYLENOL ADMINISTERED, EFFECTIVE PER PT. REPORT. PUREWICK REMOVED D/T MIXED WITH LOOSE STOOL. PT. HAS RESTED T/O THIS SHIFT, SHE IS ABLE TO MAKE HER NEEDS KNOWN. NO ACUTE DISTRESS NOTED/REPORTED DURING THIS SHIFT. BED AT THE LOWEST POSITION, CALL LIGHT WITHIN REACH. WILL HAND OFF TO THE INCOMING SHIFT NURSE.
[2024-01-23 07:09] LABS: Hemoglobin 8.8 g/dL (11.5-16.0)
[2024-01-23 07:44] VITALS: BP 120/50
[2024-01-23] MEDS ORDERED: Venlafaxine HCl 75 MG CapCR PO SCH (09:00)
[2024-01-23] MEDS ORDERED: Cyanocobalamin 500 MCG Tab PO SCH (09:00)
[2024-01-23] MEDS ORDERED: Atorvastatin 40 MG Tab PO SCH (09:00)
[2024-01-23] MEDS ORDERED: Potassium Chloride 10 Meq Tablet SA PO SCH (09:00)
--- NOTE | 2024-01-23 10:22 | NUR ---
Spiritual care visit conducted. Patient is lying in bed and alert. She tells me about her medical history, and the current plan of care. She then shares about her family (the deaths of 3 out of 7 of her children and her spouse), her michael, and her positive experience of living at [facility] since 2011. She talks about her concerns about what is happening with her medically and states that she hopes more answers will come soon. I listen empathically and provide encouragement and prayer. Patient responded well and showed signs of greater peace. I will continue to remain available to patient and family.
[2024-01-23 15:51] VITALS: BP 120/50
--- NOTE | 2024-01-23 18:36 | NUR ---
SHIFT SUMMARY: PT A&O X4. PLEASANT AND COOPERATIVE WITH CARE. HEMATURIA CONTINUING WITH NOTICABLE BLOOD CLOTS. NO STOOL TO SEND FOR TESTING THIS SHIFT. PT ON CLEAR LIQUID DIET. DR. ZUNIGA ARRIVED TO PT ROOM THIS EVENING. PT SPOKE WITH DAUGHTER AND DECIDED TO HAVE COLONOSCOPY. PT STATES THIS WILL OCCUR "TOMORROW AFTERNOON SOMETIME." PT TO BE NPO ATER MIDNIGHT. HYPERGLYCEMIC PRIOR TO LUNCH AND DINNER. MEDICATED PER EMAR. NO C/O PAIN. VSS. CALL LIGHT IN REACH. BED IN LOWEST POSITION.
[2024-01-23 19:32] VITALS: BP 112/34
[2024-01-23 19:51] VITALS: BP 116/52
[2024-01-23 19:52] VITALS: BP 118/52
[2024-01-23] MEDS ORDERED: Peg/Electrolytes 4,000 ML BTL PO ONE (20:00)
[2024-01-24] VITALS (32 sets, daily range): BP systolic 84–162; BP diastolic 32–76
--- NOTE | 2024-01-24 03:48 | NUR ---
SHIFT SUMMARY PT. HAS BEEN NPO AFTER MIDNIGHT (ICE CHIPS AND SIPS PRN,) AND PREPPING FOR TODAYS COLONOSCOPY ORDERED. PT. IS VERY PLEASANT, A&O X4, ABLE TO MAKE HER NEEDS KNOWN, AND COOP WITH CARE. PT. STARTED BOWEL PREP APPRX@2200, AND CONSUMED 1000ML GOLYTELY. NO COMPLAINTS OFFERED. PT. HAD 3-4 LOOSE BM'S, MIXED WITH REDDISH URINE. BM IS BROWNISH COLOR. PT. DENIES PAIN, BT HYPOACTIVE, ABD.FIRM AND DISTENDED SLIGHTLY TO PALPATION. WILL CONT. BOWEL CARE AT 0600 ORDERED. NO ACUTE EVENTS/DISTRESS NOTED OR REPORTED. CALL LIGHT WITHIN REACH, BED AT THE LOWEST POSITION. WILL HAND OFF TO THE INCOMING SHIFT NURSE.
[2024-01-24 05:19] LABS: Hematocrit 26.1 % (33.0-51.0); Hemoglobin 8.5 g/dL (11.5-16.0); Mean Corpuscular HGB Conc 32.6 g/dL (31.5-36.5); Mean Corpuscular Volume 89 fL (80-100); Mean Platelet Volume 9.6 fL (9.1-12.4); Platelet Count 166 K/mm3 (150-400); RDW Coefficient Variation 13.6 % (11.7-14.2); RDW Standard Deviation 44.4 fL (35.1-46.3); Red Blood Cell Count 2.93 M/mm3 (3.80-5.20); White Blood Cell Count 10.26 K/mm3 (4.00-11.30)
[2024-01-24] MEDS ORDERED: Peg/Electrolytes 4,000 ML BTL PO ONE (06:00)
[2024-01-24] MEDS ORDERED: Calcitriol 0.25 MCG Cap PO SCH (09:00)
[2024-01-24] MEDS ORDERED: Lactated Ringer's 1,000 ML IV SCH (11:50)
[2024-01-24] MEDS ORDERED: propofoL 40 ML IV ONE (13:16)
--- NOTE | 2024-01-24 13:39 | NUR ---
01/24/24 1339 Lissette Quiñones HISTORY, CHART, MEDICATIONS AND ALLERGIES REVIEWED BEFORE START OF PROCEDURE. PATIENT CONFIRMS NPO STATUS AND AGREES WITH SCHEDULED PROCEDURE. 3-LEAD EKG REVIEWED WITH PHYSICIAN PRIOR TO START OF PROCEDURE. MONITOR INTACT WITH CONTINUOUS PULSE OXIMETRY,CAPNOGRAPHY, 3-LEAD EKG, INTERMITTENT BP. SUPPLEMENTAL O2 TO BE TITRATED THROUGHOUT PROCEDURE TO MAINTAIN O2 SATURATION ABOVE 90%. PATIENT DETERMINED TO BE ASA APPROPRIATE FOR PROPOFOL SEDATION PRIOR TO START OF PROCEDURE BY .MALLAMPATI CLASS 3 AIRWAY: VISUALIZATION OF ONLY THE BASE OF THE UVULA.
[2024-01-24 14:12] LABS: Bun/Creatinine Ratio 27.3 (12.0-20.0); Calcium, Blood 8.7 mg/dL (8.5-10.1); Creatinine, Blood 1.54 mg/dL (0.40-1.00); Potassium, Blood 3.7 mmol/L (3.5-5.5)
--- NOTE | 2024-01-24 14:57 | NUR ---
PATIENT RETURNED FROM DAY SURGERY POST COLONOSCOPY; WAS TOLD IN REPORT BLEEDING FROM HEMMORHOIDS AND THAT 1 POLYP WAS REMOVEDX2 CLIPS. SHE WAS GIVEN 240 OF PROFOFAL AND 550 OF FLUIDS. PATIENT WAS ALERT UPON TRANSFER. DRINKING WATER, AND SHOWING NO SIGNS OR SYMPTOMS OF DISTRESS. PLAN OF CARE ONGOING.
--- NOTE | 2024-01-24 16:43 | NUR ---
SHIFT SUMMARY: NO EVENTS OR CHANGES WITH THE PATIENT THROUGHOUT THE SHIFT. SHE UNDERWENT HER COLONOSCOPY TODAY; SEE NURSES NOTE. SHE CONTINUES TO BE INCONTIENT OR BOWEL AND URINE; STATES THAT SHE KNOWS WHEN SHE IS NEEDING TO BE CHANGES, BUT DOES NOT CALL. SHE CONTINUES TO HAVE LOOSE/WATER STOOLS DUE TO BOWEL PREP WITH BLOOD AND CLOTS PRESENT. PATIENT DENIES PAIN. SHE IS IN BED PLAYING ON HER TABLET, HASN'T HAD FOOD YET DUE TO NOT BEING HUNGRY, BUT IS TOLERATING WATER. HER CALL LIGHT IS WITHIN REACH AND SHE IS NOT SHOWING ANY SIGNS OR SYMPTOMS OF DISTRESS. PLAN OF CARE ONGOING.
--- NOTE | 2024-01-24 18:41 | NUR ---
CALLED BACK PATIENT'S DAUGHTER MABLE. MANY ATTEMPTS TO CONTACT BUT GOT BUSY TONE WAS UNABLE TO GET A HOLD OF PATIENT'S DAUGHTER
[2024-01-25] VITALS (9 sets, daily range): BP systolic 107–140; BP diastolic 46–56
[2024-01-25 05:07] LABS: Hematocrit 21.6 % (33.0-51.0); Hemoglobin 7.1 g/dL (11.5-16.0); Mean Corpuscular HGB 29.3 pg (26.0-34.0); Mean Corpuscular HGB Conc 32.9 g/dL (31.5-36.5); Mean Corpuscular Volume 89 fL (80-100); Mean Platelet Volume 9.6 fL (9.1-12.4); Platelet Count 150 K/mm3 (150-400); RDW Coefficient Variation 13.9 % (11.7-14.2); Red Blood Cell Count 2.42 M/mm3 (3.80-5.20); White Blood Cell Count 8.45 K/mm3 (4.00-11.30)
[2024-01-25 05:40] LABS: Calcium, Blood 8.8 mg/dL (8.5-10.1); Creatinine, Blood 1.6 mg/dL (0.40-1.00); Potassium, Blood 3.8 mmol/L (3.5-5.5)
--- NOTE | 2024-01-25 05:55 | NUR ---
CALLED MD CHANGE IN HEMOGLOBIN. PLATEN BUILDER UP reported patient seeing dime sized blood clots, when changing brief. Morning labs resulted: RBC 2.4, Hgb 7.1, & Hct 21.6. This morning labs Hgb is now 7.1. No changes in patient observed, VSS BP 134/54 & HR 85, O2 97% RA. Notified MD, verbal orders to hold anticoagulants if ordered and draw CBC at 1200 and continue to monitor.
--- NOTE | 2024-01-25 05:56 | NUR ---
SHIFT SUMMARY Patient alert & oriented x3, calls appropriately. Repositioned Q2H with pillows. Patient in continent of bloody urine, no bowel movments this shift. Will continue plan of care.
[2024-01-25 12:17] LABS: BASOPHILS ABSOLUTE AUTO 0.03 K/mm3 (0.00-0.23); BASOPHILS PERCENT AUTO 0 % (0-2); EOSINOPHILS ABSOLUTE AUTO 0.54 K/mm3 (0.00-0.68); EOSINOPHILS PERCENT AUTO 7 % (0-6); Hemoglobin 6.8 g/dL (11.5-16.0); IMMATURE GRAN ABSOLUTE AUTO 0.03 K/mm3 (0.00-0.10); IMMATURE GRAN PERCENT AUTO 0 % (0-1); LYMPHOCYTES ABSOLUTE AUTO 1.26 K/mm3 (0.84-5.20); LYMPHOCYTES PERCENT AUTO 16 % (21-46); MONOCYTES ABSOLUTE AUTO 0.77 K/mm3 (0.16-1.47); MONOCYTES PERCENT AUTO 10 % (4-13); Mean Corpuscular HGB 29.1 pg (26.0-34.0); Mean Corpuscular HGB Conc 32.4 g/dL (31.5-36.5); Mean Corpuscular Volume 90 fL (80-100); Mean Platelet Volume 9.6 fL (9.1-12.4); NEUTROPHILS ABSOLUTE AUTO 5.26 K/mm3 (1.96-9.15); NEUTROPHILS PERCENT AUTO 67 % (41-73); Platelet Count 147 K/mm3 (150-400); RDW Standard Deviation 45.1 fL (35.1-46.3); Red Blood Cell Count 2.34 M/mm3 (3.80-5.20); White Blood Cell Count 7.89 K/mm3 (4.00-11.30)
[2024-01-25] MEDS ORDERED: NS 500 ML IV SCH (12:30)
--- NOTE | 2024-01-25 16:25 | NUR ---
NOTE: SPOKE WITH GRANDDAUGHTER ON THE PHONE. SHE EXPRESSED CONCERN ABOUT HER GRANDMOTHER GOING HOME TO [facility] TOMORROW. THIS NURSE WILL PASS ALONG TO THE ONCOMING NURSE AND THIS CONCERN WAS PASSED ALONG TO CARE MANAGEMENT. THEY ARE AWARE OF THEIR CONCERNS AND WILL ADDRESS THOSE CONCERNS, IF NEEDED, UPON DISCHARGE.
--- NOTE | 2024-01-25 18:29 | NUR ---
SHIFT SUMMARY PT AOX3, CONFUSED AT TIMES. NO COMPLAINTS THIS SHIFT. REPOSITIONED T/O THE SHIFT. POSSIBLE DC SUNDAY. SPOKE WITH AND UPDATED [facility] TODAY. PG PUT IN TODAY, WILL GET A BLOOD TRANSFUSION THIS EVENING. CALL LIGHT WITHIN REACH, BED LOCKED AND IN THE LOWEST POSITION. WILL REPORT TO ONCOMING NURSE.
[2024-01-25] MEDS ORDERED: Insulin Glargine-Yfgn 100 Unit/mL 3 ML SYR SC SCH (21:00)
[2024-01-26 04:30] VITALS: BP 132/45
[2024-01-26 04:44] LABS: Hematocrit 23.9 % (33.0-51.0); Mean Corpuscular HGB 29.4 pg (26.0-34.0); Mean Corpuscular HGB Conc 33.5 g/dL (31.5-36.5); Mean Corpuscular Volume 88 fL (80-100); Mean Platelet Volume 9.7 fL (9.1-12.4); Platelet Count 131 K/mm3 (150-400); RDW Coefficient Variation 14.8 % (11.7-14.2); RDW Standard Deviation 47.5 fL (35.1-46.3); Red Blood Cell Count 2.72 M/mm3 (3.80-5.20); White Blood Cell Count 8.27 K/mm3 (4.00-11.30)
--- NOTE | 2024-01-26 04:58 | NUR ---
SHIFT SUMMARY PT A&OX3 BUT FORGETFUL. NO C/O PAIN. 1 UNIT OF PRBC GIVEN AT START OF SHIFT. PT TOLERATED WELL AND VS REMAINED STABLE. PINK URINE AND LARGE BLOOD CLOT NOTED IN ATTENDS DURING BRIEF CHANGE. PT'S BG WAS 263 AT HS. INSULIN GLARGINE GIVEN PER EMAR. PT ABLE TO SLEEP MOST OF THE NIGHT. VSS. BED IN LOWEST POSITION AND CALL LIGHT IN REACH.
[2024-01-26 07:49] VITALS: BP 123/47
[2024-01-26] MEDS ORDERED: BASAGLAR K100 UNIT/1 SC (10:39)
[2024-01-26] MEDS ORDERED: Vitamin D1000 UNI1 PO (10:41)
[2024-01-26] MEDS ORDERED: [UNRECOGNIZED DRUG - OTHER] TOP (10:44)
[2024-01-26] MEDS ORDERED: PANT20 PO (10:47)
[2024-01-26 15:30] VITALS: BP 113/51
--- NOTE | 2024-01-26 17:38 | NUR ---
SHIFT SUMMARY: PT A&O X4. PLEASANT AND COOPERATIVE WITH ALL CARE. NO ACUTE CHANGES THIS SHIFT. PT REMAINS TO HAVE SMALL BLOOD CLOTS IN URINE. PATIENT HAD PT EVAL THIS SHIFT. LOOKS TO BE AT BASELINE WITH STANDING/TRANSFERING. AMI, PT PLACE OF LIVING, REFUSING TO TAKE PT BACK UNTIL SUNDAY. PT DAUGHTER AWARE OF PLAN. HGB THIS AM 8.0. PLAN TO RECHECK LABS IN AM. REPEAT BLADDER US COMPLETED THIS SHIFT. PT UP IN CHAIR FOR LUNCH AND DINNER. ACCU CHECKS COMPLETED. INSULIN PROVIDED PER EMAR. CALL LIGHT IN REACH. BED IN LOWEST POSITION.
[2024-01-26 19:57] VITALS: BP 135/56
--- NOTE | 2024-01-27 04:49 | NUR ---
SHIFT SUMMARY PT A&OX4 AND PLEASANT. NO ACUTE CHANGES. NO C/O PAIN. URINE STILL BLOOD TINGED BUT NO BLOOD CLOTS WHERE NOTED DURING ATTENDS CHANGE. VSS. PT ABLE TO SLEEP T/O NIGHT. BED IN LOWEST POSITION AND CALL LIGHT IN REACH.
[2024-01-27 05:04] LABS: Hematocrit 24.7 % (33.0-51.0); Hemoglobin 8.2 g/dL (11.5-16.0); Mean Corpuscular HGB 29.4 pg (26.0-34.0); Mean Corpuscular HGB Conc 33.2 g/dL (31.5-36.5); Mean Corpuscular Volume 89 fL (80-100); Platelet Count 126 K/mm3 (150-400); RDW Coefficient Variation 14.8 % (11.7-14.2); RDW Standard Deviation 47.5 fL (35.1-46.3); Red Blood Cell Count 2.79 M/mm3 (3.80-5.20); White Blood Cell Count 8.31 K/mm3 (4.00-11.30)
[2024-01-27 05:39] LABS: Bun/Creatinine Ratio 25.4 (12.0-20.0); Creatinine, Blood 1.69 mg/dL (0.40-1.00); Potassium, Blood 4.1 mmol/L (3.5-5.5)
[2024-01-27 07:48] VITALS: BP 105/56
[2024-01-27 15:26] VITALS: BP 142/46
--- NOTE | 2024-01-27 18:20 | NUR ---
SHIFT SUMMARY: PT A&O X4. PLEASANT AND COOPERATIVE WITH CARE. NO ACUTE CHANGES THIS SHIFT. PT STILL HAVING HEMATURIA BUT NO BLOOD CLOTS NOTED THIS SHIFT. PT UP IN CHAIR FOR BREAKFAST AND DINNER. ONE PERSON ASSIST c TRANSFERS USING WALKER/GB. ACCU CHECKS OBTAINED. INSULIN PROVIDED PER EMAR. PLAN FOR PT TO D/C TOMORROW. HGB STABLE AT THIS TIME. CALL LIGHT IN REACH. EATING DINNER IN CHAIR AT THIS TIME.
[2024-01-27 19:19] VITALS: BP 127/63
[2024-01-27] MEDS ORDERED: Insulin Glargine-Yfgn 100 Unit/mL 3 ML SYR SC SCH (21:00)
[2024-01-28 04:08] VITALS: BP 114/46
[2024-01-28 07:43] VITALS: BP 112/48
--- NOTE | 2024-01-28 07:48 | NUR ---
SHIFT SUMMARY PT IS A&OX4, [place]K, BILATERAL HEARING AIDES IN PLACE. VSS, BP SOFT, ON RA. GAVE PT HALF DOSE OF HER NIGHTLY COREG. DENIES PAIN. X1 ASSIST WITH FWW AND GB. PT IS INCONTINENT OF URINE, BRIEF IN PLACE. PT STILL REMAINS HAVING HEMATURIA. NO BM THIS SHIFT. CHECK, CHANGE AND REPOSITIONED Q2. BED IN LOWEST POSITION, CALL LIGHT WITHIN REACH.
--- NOTE | 2024-01-28 13:43 | NUR ---
DISCHARGE: PT D/C @1330 VIA WHEELCHAIR WITH TRANSPORT BACK TO [facility]. MEDICATIONS FAXED TO [facility]. PG REMOVED BY THIS RN W/O COMPLICATIONS. PACKET AND FACE SHEET SENT WITH PT. FOLLOW-UP APPOINTMENT MADE FOR PT. NOTE SENT WITH PACKET. PT STATES SHE IS NOT LIKELY ABLE TO MAKE IT ITS @ 4:15 AND LATE TRANSPORT FOR FACILITY. PT AWARE TO CANCEL IF NOT ABLE TO MAKE. NO QUESTIONS AT TIME OF D/C.
== END 2024-01-28 13:30 | disposition home or self-care (01) | DRG 394 ==
LOC: ER 11:21 → MEDS 11:22
PROVIDERS: Emergency Medicine; Internal Medicine; Internal Medicine Gastroenterology; Student in an Organized Health Care Education/Training Program; ADMIT Internal Medicine
PROC: 0DBL8ZZ Excision of Transverse Colon, Via Natural or Artificial Opening Endoscopic (ICD-10-PCS; principal; 2024-01-24 08:15)
PROC: 30233N1 Transfusion of Nonautologous Red Blood Cells into Peripheral Vein, Percutaneous Approach (ICD-10-PCS; 2024-01-25)
DX: K64.4 Residual hemorrhoidal skin tags (principal); D62 Acute posthemorrhagic anemia; I13.0 Hypertensive heart and chronic kidney disease with heart failure and stage 1 through stage 4 chronic kidney disease, or unspecified chronic kidney disease; N18.4 Chronic kidney disease, stage 4 (severe); I50.32 Chronic diastolic (congestive) heart failure; I69.351 Hemiplegia and hemiparesis following cerebral infarction affecting right dominant side; R31.9 Hematuria, unspecified; Z66 Do not resuscitate; E11.22 Type 2 diabetes mellitus with diabetic chronic kidney disease; K63.5 Polyp of colon; N32.89 Other specified disorders of bladder; R19.7 Diarrhea, unspecified; M85.80 Other specified disorders of bone density and structure, unspecified site; M19.90 Unspecified osteoarthritis, unspecified site; Z96.651 Presence of right artificial knee joint; Z88.5 Allergy status to narcotic agent; Z86.718 Personal history of other venous thrombosis and embolism; Z98.1 Arthrodesis status; Z79.02 Long term (current) use of antithrombotics/antiplatelets; Z79.4 Long term (current) use of insulin; N28.1 Cyst of kidney, acquired; N26.1 Atrophy of kidney (terminal); N28.89 Other specified disorders of kidney and ureter
CPT/HCPCS: 36415; 36430; 76770; 76857; 80048; 80053; 81001; 82947; 85014; 85018; 85025; 85027; 86850; 86900; 86901; 86923; 87086; 88305; 93005; 93010; 96374; 96376; 97110; 97112; 97161; 97165; 97530; 99285-25; A9270; C1751; C9113; G0378; J1815; J2704; J7120; P9016

== ENCOUNTER → 2024-02-07 | Outpatient (CLI) | payer OTHER ==
[~2024-02-07] MED LIST changes: +ALMACONE SUSPE355 ML PO; +Acetaminophen650 M1 PO; +BASAGLAR K100 UNIT/1 SC; +BISA10S PR; +Bumetanide2 MG PO; +CALC.25 PO; +DULCOLAX400 MG/5 M PO; +NOVOLIN N100 UNIT/2 SC; +NOVOLOG FL100 UNIT/3 SC; +NYAMYC15 G1 TOP; +PANT20 PO; +POTA10T PO; +VITAMIN D31000 UNI1 PO; +Vitamin D1000 UNI1 PO; +[UNRECOGNIZED DRUG - OTHER] TOP
[2024-02-07 13:31] LABS: BASOPHILS ABSOLUTE AUTO 0.04 K/mm3 (0.00-0.23); BASOPHILS PERCENT AUTO 0 % (0-2); EOSINOPHILS ABSOLUTE AUTO 0.71 K/mm3 (0.00-0.68); EOSINOPHILS PERCENT AUTO 7 % (0-6); Hematocrit 27.7 % (33.0-51.0); Hemoglobin 8.6 g/dL (11.5-16.0); IMMATURE GRAN ABSOLUTE AUTO 0.16 K/mm3 (0.00-0.10); IMMATURE GRAN PERCENT AUTO 2 % (0-1); LYMPHOCYTES ABSOLUTE AUTO 1.29 K/mm3 (0.84-5.20); LYMPHOCYTES PERCENT AUTO 12 % (21-46); MONOCYTES ABSOLUTE AUTO 0.89 K/mm3 (0.16-1.47); MONOCYTES PERCENT AUTO 8 % (4-13); Mean Corpuscular HGB 29.6 pg (26.0-34.0); Mean Corpuscular Volume 95 fL (80-100); Mean Platelet Volume 9.8 fL (9.1-12.4); NEUTROPHILS ABSOLUTE AUTO 7.81 K/mm3 (1.96-9.15); NEUTROPHILS PERCENT AUTO 72 % (41-73); Platelet Count 236 K/mm3 (150-400); RDW Coefficient Variation 15.1 % (11.7-14.2); RDW Standard Deviation 52.7 fL (35.1-46.3); Red Blood Cell Count 2.91 M/mm3 (3.80-5.20)
[2024-02-07 14:15] LABS: Albumin, Blood 2.7 g/dL (3.4-5.0); Anion Gap 10 mmol/L (3-11); Blood Urea Nitrogen 80 mg/dL (8-24); Bun/Creatinine Ratio 41.2 (12.0-20.0); CO2, Blood 25 mmol/L (21-32); Calcium, Blood 8.8 mg/dL (8.5-10.1); Chloride, Blood 103 mmol/L (98-108); Creatinine, Blood 1.94 mg/dL (0.40-1.00); Glomerular Filtration Rate 24 (60-); Glucose, Blood 250 mg/dL (70-99); Phosphorus, Blood 4.3 mg/dL (2.5-4.9); Potassium, Blood 4.4 mmol/L (3.5-5.5); Sodium, Blood 134 mmol/L (136-145)
== END | disposition home or self-care (01) ==
LOC: LAB SHORT 12:19 → LAB 12:19
PROVIDERS: Internal Medicine Nephrology
DX: N18.30 Chronic kidney disease, stage 3 unspecified (principal); R76.9 Abnormal immunological finding in serum, unspecified; R94.5 Abnormal results of liver function studies; R94.6 Abnormal results of thyroid function studies
CPT/HCPCS: 80069; 85025